=== PATIENT | male | born 1945 | race Caucasian/White ===

== ENCOUNTER 2016-12-20 13:31 | Emergency (ER) | payer OTHER ==
[2016-12-20 14:47] LABS: BASO # 0.1 K/uL (0.0-0.2); BASO % 1.3 % (0.0-2.0); EOS # 0.1 K/uL (0.0-0.7); EOS % 3.7 % (0.0-4.0); HEMATOCRIT 41.3 % (35.0-51.0); LYMPH # 1.1 K/uL (1.0-4.3); LYMPH % 27.9 % (20.0-40.0); MEAN CELL VOLUME 84.4 fL (80.0-94.0); MEAN CORPUSCULAR HEMOGLOBIN 27.3 pg (27.0-31.0); MEAN CORPUSCULAR HGB CONC 32.3 g/dL (33.0-37.0); MEAN PLATELET VOLUME 8.1 fL (7.2-11.7); MONO # 0.5 K/uL (0.0-0.8); MONO % 11.8 % (0.0-10.0); NRBC % 0.1 % (0.0-2.0); RED CELL DISTRIBUTION WIDTH 13.3 % (11.5-14.5); WHITE BLOOD COUNT 3.9 K/uL (4.8-10.8)
--- NOTE | 2016-12-20 14:49 | C.PDOC ---
History Of Present Illness 71 y/o male pmhx diabetes presents to the ED with complains of inability to pass stool or gas for the past 3 days. Pt also reports mild abdominal pain. Pt denies vomiting, fever, or any other complaints. Time Seen by Provider: 12/20/16 14:30 Chief Complaint (Nursing): Abdominal Pain History Per: Patient History/Exam Limitations: no limitations Onset/Duration Of Symptoms: Days Current Symptoms Are (Timing): Still Present Severity: Mild Location Of Pain/Discomfort: Diffuse Radiation Of Pain To:: None Quality Of Discomfort: "Pain" Associated Symptoms: Constipation. denies: Fever, Vomiting, Diarrhea Exacerbating Factors: None Alleviating Factors: None Recent travel outside of the [place]: No Past Medical History Reviewed: Historical Data, Nursing Documentation, Vital Signs Vital Signs: Last Vital Signs Temp 97.9 F 12/20/16 13:49 Pulse 98 H 12/20/16 13:49 Resp 16 12/20/16 13:49 BP 147/85 12/20/16 13:49 Pulse Ox 98 12/20/16 14:49 Family History: States: Unknown Family Hx - Social History Hx Alcohol Use: No Hx Substance Use: No - Immunization History Hx Tetanus Toxoid Vaccination: No Hx Influenza Vaccination: No Hx Pneumococcal Vaccination: No Review Of Systems Except As Marked, All Systems Reviewed And Found Negative. Constitutional: Negative for: Fever Gastrointestinal: Positive for: Abdominal Pain, Constipation. Negative for: Vomiting, Diarrhea Physical Exam - Physical Exam Appears: Non-toxic, No Acute Distress Skin: Warm, Dry, No Rash Head: Atraumatic, Normacephalic Neck: Normal ROM, Supple Chest: Symmetrical Cardiovascular: Rhythm Regular Respiratory: Normal Breath Sounds, No Rales, No Rhonchi, No Wheezing Gastrointestinal/Abdominal: Soft, Tenderness (mild nonfocal tenderness), Distention, No Guarding, No Rebound Rectal: Other (no stool in rectal vault) Extremity: Bilateral: Atraumatic Neurological/Psych: Oriented x3 ED Course And Treatment - Laboratory Results Result Diagrams: 12/20/16 14:43 12/20/16 14:43 O2 Sat by Pulse Oximetry: 98 (on room air) Pulse Ox Interpretation: Normal Medical Decision Making Medical Decision Making: ro obstuction: Plan: labs, XR abd, UA, IV fluids 553: pt repors pain improved. ct neg for obstruction. offered enema in er. pt declines, asking for d/c. family refuses to wait in er for ua. Disposition - Disposition Referrals: [facility] [Outside] [facility] [Outside] Torsten Sherman MD [Staff Provider] - Disposition: HOME/ ROUTINE Disposition Time: 17:54 Condition: STABLE Additional Instructions: please see your doctor/clinic and specialist. return to er with worsening symptoms or concerns. Prescriptions: Polyethylene Glycol 3350 [Miralax] 17 gm PO DAILY PRN #4 [email or web address] PRN Reason: Constipation Instructions: Acute Abdominal Pain (ED), Constipation (DC) Print Language: GREEK - Clinical Impression Clinical Impression: Abdominal pain - Scribe Statement The provider has reviewed the documentation as recorded by the Sergo Leiva Provider Attestation: All medical record entries made by the Sergo were at my direction and personally dictated by me. I have reviewed the chart and agree that the record accurately reflects my personal performance of the history, physical exam, medical decision making, and the department course for this patient. I have also personally directed, reviewed, and agree with the discharge instructions and disposition.
[2016-12-20 14:56] LABS: CHLORIDE 94 mmol/L (98-107); SODIUM 137 mmol/L (132-148)
[2016-12-20 14:59] LABS: ALB/GLOB RATIO 1.3 (1.0-2.1); ALKALINE PHOSPHATASE 53 U/L (38-126); ALT/SGPT 24 U/L (21-72); AST/SGOT 42 U/L (17-59); BILIRUBIN,TOTAL 0.6 mg/dL (0.2-1.3); BLOOD UREA NITROGEN 16 mg/dL (9-20); CALCIUM 9.3 mg/dl (8.6-10.4); CARBON DIOXIDE 25 mmol/L (22-30); GFR AFRICAN-AMERICAN > 60; GLUCOSE,RANDOM 136 mg/dL (75-110); TOTAL PROTEIN 8.4 g/dL (6.3-8.3)
[2016-12-20] MEDS ORDERED: Iodixanol 320 MG/ML 100 ML BOTTLE IV ONE (15:59)
--- NOTE | 2016-12-20 17:50 | CT ---
PROCEDURE: CT Abdomen and Pelvis with contrast HISTORY: abd pain/distention r/o obstruction COMPARISON: None. TECHNIQUE: Contrast dose: 100 mL Visipaque 320 Radiation dose: Total exam DLP = 575.15 mGy-cm. FINDINGS: LOWER THORAX: No evidence of acute pathology. LIVER: Mild hepatomegaly with findings suggestive of [id number] steatosis. GALLBLADDER AND BILE DUCTS: Unremarkable. PANCREAS: Unremarkable. No gross lesion or ductal dilatation. SPLEEN: Unremarkable. ADRENALS: Unremarkable. No mass. KIDNEYS AND URETERS: Unremarkable. No hydronephrosis. No solid mass. VASCULATURE: Unremarkable. No aortic aneurysm. BOWEL: No evidence of bowel obstruction. Moderately distended large bowel loops demonstrate mild enhancing wall thickening. Moderately distended rectum impacted with feces. No evidence of pneumatosis. APPENDIX: No evidence of appendicitis. PERITONEUM: Unremarkable. No free fluid. No free air. LYMPH NODES: Unremarkable. No enlarged lymph nodes. BLADDER: Mildly distended. REPRODUCTIVE: Mildly enlarged prostate. BONES: No acute fracture. OTHER FINDINGS: None. IMPRESSION: No evidence of small bowel obstruction. Moderately distended large bowel loops demonstrate diffuse mild enhancing wall thickening. Moderately distended cecum and rectum impacted with feces. Mild hepatomegaly and [id number] hepatic steatosis. Mildly enlarged prostate. Distended urinary bladder. Small bilateral fat containing inguinal hernias.
[2016-12-20 17:56] LABS: RBC URINE 4 /hpf (0-3); URINE BACTERIA RARE (<OCC); URINE BILIRUBIN NEGATIVE (NEGATIVE); URINE BLOOD 1+ (NEGATIVE); URINE COLOR Straw (YELLOW); URINE GLUCOSE (UA) 1+ mg/dL (Normal); URINE KETONE NEGATIVE (NEGATIVE); URINE LEUKOCYTE ESTERASE NEG Leu/uL (Negative); URINE PROTEIN NEGATIVE (NEGATIVE); URINE UROBILINOGEN NORMAL mg/dL (0.2-1.0); WBC URINE < 1 /hpf (0-5)
[2016-12-20 18:04] VITALS: BP 129/79; PULSE 81; RESP 18; TEMP 98.5; O2SAT 100
--- NOTE | 2016-12-21 08:49 | RAD ---
Abdomen four views History: Abdominal pain. Comparison: None available. Findings: Biapical pleural thickening with upper lobe granulomatous changes. Elevated right hemidiaphragm. Bibasilar atelectasis. Moderate fecal retention in the colon. Relative paucity of bowel gas. Impression: Moderate fecal retention in the colon.
== END 2016-12-20 18:04 | disposition home or self-care (01) ==
LOC: C.ER 13:31
DX: R10.84 Generalized abdominal pain (principal); K59.00 Constipation, unspecified
CPT/HCPCS: 74022; 74177; 80053; 81001; 83690; 85025; 99284; Q9967